=== PATIENT | male | born 1945 | race Caucasian/White ===

== ENCOUNTER 2018-04-01 07:10 | Emergency (ER) | payer MEDICARE, OTHER ==
[~2018-04-01] VITALS: Ht 177.8 cm; Wt 84.0 kg
[~2018-04-01 07:10] MED LIST: ACIPHEX20 M1 PO; ACIPHEX20 MG PO; AZITHROMYCIN500 MG PO; CARDURA2 MG PO; CARDURA4 MG PO; DOXAZOSIN4 M1 PO; ENALAPR/HCTZ1 TA1 PO; FLUARIX QUADRIV1 IN1 IM; GABAPENTIN300 MG PO; LOPRESSOR50 M1 PO; LYRICA75 MG PO; METOPROL TAR50 MG PO; NEXIUM40 M1 PO; NEXIUM40 MG PO; NIZORAL2 % EX; PERCOCET 5/325M1 TAB PO; RESTORIL15 MG PO; VASERETIC1 TAB PO; ZPAK PO
[2018-04-01 08:18] LABS: HEMATOCRIT 36.7 % (39.0-50.0); HEMOGLOBIN 12.8 g/dl (14.0-18.0); IMMATURE GRANULOCYTES 0.3 % (0.0-1.0); MEAN CORPUSCULAR HGB 30.3 pG CALC (26.0-32.0); MEAN CORPUSCULAR HGB CONC 34.9 g/L CALC (32.0-36.0); NEUT# 4.16 thou/uL (1.82-7.42); RED BLOOD COUNT 4.22 mill/uL (4.70-6.10); RED CELL DISTRI WIDTH 12.9 % (11.5-15.5)
[2018-04-01 08:27] LABS: URINE BILIRUBIN - DIPSTICK NEGATIVE (NEGATIVE); URINE BLOOD DIPSTICK NEGATIVE (NEGATIVE); URINE COLOR YELLOW; URINE GLUCOSE - DIPSTICK NEGATIVE (NEGATIVE); URINE KETONE NEGATIVE (NEGATIVE); URINE LEUK ESTERASE NEGATIVE (NEGATIVE); URINE NITRITE - DIPSTICK NEGATIVE (Negative); URINE PH 6.5 (4.5-8.0); URINE PROTEIN - DIPSTICK NEGATIVE (NEG-TRACE); URINE UROBILINOGEN - DIPSTICK 0.2 E.U./dL (0.2)
[2018-04-01 08:28] LABS: ALBUMIN 3.8 g/dL (3.2-5.0); ALKALINE PHOSPHATASE 74 u/l (38-126); ANION GAP 16 (6-22 (CALC)); BILIRUBIN, TOTAL 0.8 mg/dL (0.0-1.4); BUN 23 mg/dL (8-23); BUN/CREATININE RATIO 19 (12-20 (CALC)); CARBON DIOXIDE 28 mmol/l (22-30); CHLORIDE 96 mmol/l (95-108); CREATININE 1.2 mg/dL (0.7-1.3); GFR 60 ML/MIN (>=60 (CALC)); GFR FOR AFR.AMER. > 60 ML/MIN (>=60 (CALC)); LIPASE 107 u/l (23-300); POTASSIUM 3.6 mmol/l (3.5-5.1); SGOT/AST 20 u/l (19-48); SGPT/ALT 42 u/l (11-66); SODIUM 136 mmol/l (137-146)
[2018-04-01 08:30] LABS: URINE CLARITY CLEAR
[2018-04-01 09:41] VITALS: BP 132/66
== END 2018-04-01 09:49 | disposition short-term general hospital (02) ==
LOC: ED 07:10
PROVIDERS: Emergency Medicine
DX: K92.2 Gastrointestinal hemorrhage, unspecified (principal); I10 Essential (primary) hypertension

== ENCOUNTER 2018-04-10 13:09 | Observation (INO) | payer MEDICARE, OTHER ==
[~2018-04-10] VITALS: Ht 177.8 cm; Wt 77.1 kg
--- NOTE | 2018-04-10 13:30 | NUR ---
PT WAS A DIRECT ADMIT. FROM DR. CARNEY'S OFFICE. IV WAS PLACED IN RAC , TOLERATED WELL. CT AND XRAY COMPLETED> LABS COMPLETED:
[2018-04-10 13:45] VITALS: BP 126/65
[2018-04-10 14:08] LABS: URINE BILIRUBIN - DIPSTICK NEGATIVE (NEGATIVE); URINE BLOOD DIPSTICK NEGATIVE (NEGATIVE); URINE CLARITY CLEAR; URINE COLOR YELLOW; URINE GLUCOSE - DIPSTICK NEGATIVE (NEGATIVE); URINE KETONE NEGATIVE (NEGATIVE); URINE LEUK ESTERASE NEGATIVE (NEGATIVE); URINE NITRITE - DIPSTICK NEGATIVE (Negative); URINE PH 7.5 (4.5-8.0); URINE PROTEIN - DIPSTICK NEGATIVE (NEG-TRACE); URINE SPECIFIC GRAVITY 1.015; URINE UROBILINOGEN - DIPSTICK 0.2 E.U./dL (0.2)
[2018-04-10 14:34] LABS: HEMATOCRIT 34.7 % (39.0-50.0); HEMOGLOBIN 11.9 g/dl (14.0-18.0); IMMATURE GRANULOCYTES 0.3 % (0.0-1.0); MEAN CELL VOLUME 87.4 fL CALC (80.0-100.0); MEAN CORPUSCULAR HGB CONC 34.3 g/L CALC (32.0-36.0); NEUT# 4.08 thou/uL (1.82-7.42); RED BLOOD COUNT 3.97 mill/uL (4.70-6.10); RED CELL DISTRI WIDTH 12.7 % (11.5-15.5)
[2018-04-10 14:42] LABS: ANION GAP 16 (6-22 (CALC)); BUN 17 mg/dL (8-23); BUN/CREATININE RATIO 15 (12-20 (CALC)); CARBON DIOXIDE 28 mmol/l (22-30); CHLORIDE 96 mmol/l (95-108); CREATININE 1.1 mg/dL (0.7-1.3); GFR > 60 ML/MIN (>=60 (CALC)); GFR FOR AFR.AMER. > 60 ML/MIN (>=60 (CALC)); SODIUM 135 mmol/l (137-146)
[2018-04-10 14:50] LABS: POTASSIUM 4.7 mmol/l (3.5-5.1)
--- NOTE | 2018-04-10 15:00 | NUR ---
ASSESSMENT IS COMPLETED: ATTEMPTED TO HAVE IV FLUIDS IN RAC BECAME PUFFY WHEN FLUSHED. ATTEMPTED TO TRY X2 TO RESTART UNABLE. BREATH SOUNDS ARE CLEAR, BILATERALLY, NO C/O SOB, HR IS REG,PULSES ARE STRONG X4. ABD IS SOFT WITH ACTIVE BS. FAMILY IN THE ROOM. CONTINUE T OSBERVE AND MONITOR.
[2018-04-10 15:25] VITALS: BP 133/63
--- NOTE | 2018-04-10 17:00 | NUR ---
PT IS RELAXING IN BED WITH NO DISTRESS NOTED. IV RESTARTED IN RAC WITH 22 BY TANNA PREP COOK. PT TOLERATED WELL. FAMILY CAME IN TO VISIT WITH PT. CONTINUE TO OBSERVE AND MONITOR.
[2018-04-10 19:00] VITALS: BP 136/51
--- NOTE | 2018-04-10 19:35 | NUR ---
PT AWAKE RESTING IN BED. RESP EVEN AND UNLABORED. ALERT AND ORIENTED X4. LUNGS CLEAR BILAT. ABD SOFT AND NONDISTENDED WITH BOWEL SOUNDS PRESENT. NO LOWER EXT EDEMA NOTED. PEDAL PULSES PALPATED BILAT. IV SITE PATENT IN RT A.C NO REDNESS OR SWELLING AT SITE. IVF D5 1/2NSS AT 120CC/HR. PT DENIES ANY PAIN OR DISCOMFORT. TELE INTACT READING SR PER E.D. FREQUENT ROUNDS MADE. CALL CROOKS WITHIN REACH.
[2018-04-11 00:18] VITALS: BP 124/65
--- NOTE | 2018-04-11 00:30 | NUR ---
PT RESTING IN BED WITH EYES CLOSED. RESP EVEN AND UNLABORED. NO DISTRESS NOTED. IV SITE PATENT. TELE INTACT. FREQUENT ROUNDS MADE. CALL CROOKS WITHIN REACH.
[2018-04-11 04:25] VITALS: BP 126/65
--- NOTE | 2018-04-11 04:33 | NUR ---
PT RESTING IN BED WITH EYES CLOSED. RESP EVEN AND UNLABORED. NO DISTRESS NOTED. IV SITE PATENT. FREQUENT ROUNDS MADE. CALL CROOKS WITHIN REACH.
[2018-04-11 05:31] LABS: HEMATOCRIT 30.7 % (39.0-50.0); HEMOGLOBIN 10.7 g/dl (14.0-18.0); IMMATURE GRANULOCYTES 0.8 % (0.0-1.0); MEAN CELL VOLUME 86.2 fL CALC (80.0-100.0); MEAN CORPUSCULAR HGB 30.1 pG CALC (26.0-32.0); MEAN CORPUSCULAR HGB CONC 34.9 g/L CALC (32.0-36.0); NEUT# 2.95 thou/uL (1.82-7.42); RED BLOOD COUNT 3.56 mill/uL (4.70-6.10); RED CELL DISTRI WIDTH 12.4 % (11.5-15.5)
[2018-04-11 05:51] LABS: ALBUMIN 3.1 g/dL (3.2-5.0); ALKALINE PHOSPHATASE 54 u/l (38-126); ANION GAP 13 (6-22 (CALC)); BILIRUBIN, TOTAL 0.4 mg/dL (0.0-1.4); BUN 14 mg/dL (8-23); BUN/CREATININE RATIO 14 (12-20 (CALC)); CARBON DIOXIDE 28 mmol/l (22-30); CHLORIDE 96 mmol/l (95-108); GFR > 60 ML/MIN (>=60 (CALC)); GFR FOR AFR.AMER. > 60 ML/MIN (>=60 (CALC)); POTASSIUM 3.8 mmol/l (3.5-5.1); SGOT/AST 16 u/l (19-48); SGPT/ALT 31 u/l (11-66); SODIUM 133 mmol/l (137-146); TOTAL PROTEIN 5.9 g/dL (6.3-8.2)
[2018-04-11 08:40] VITALS: BP 136/73
--- NOTE | 2018-04-11 08:40 | NUR ---
PT IS RELAXING IN BED WITH NO DISTRESS NOTED. IV SITE IS FREE FROM REDNESS OR EDEMA. HR IS REG, PULSES ARE STRONG X4, ABD IS SOFT WITH ACTIVE BS. TELE MONITOR IN PLACE. CONTINUE TO OBSERVE AND MONITOR.
--- NOTE | 2018-04-11 12:30 | NUR ---
PT HAS BEEN RELAXING IN BED WITH NO DISTRESS NOTED. IV SITE IS FREE FROM RDNESS OR EDEMA.
--- NOTE | 2018-04-11 13:00 | NUR ---
DISCHARGE INSTRUCTIONS GIVEN AND VERBALIZED UNDERSTANDING, Discharge instructions given. Patient verbalizes understanding of same. Discharged in stable condition via AMBULATORY to Home with family. All belongings sent with pt.
== END 2018-04-11 13:07 | disposition home or self-care (01) ==
LOC: MS2 13:09
PROVIDERS: ADMIT Internal Medicine Geriatric Medicine; ATTEND Internal Medicine Geriatric Medicine
DX: E86.0 Dehydration (principal); R53.1 Weakness; R11.2 Nausea with vomiting, unspecified; F41.9 Anxiety disorder, unspecified; R10.13 Epigastric pain; R14.0 Abdominal distension (gaseous); K21.9 Gastro-esophageal reflux disease without esophagitis; I10 Essential (primary) hypertension; E78.5 Hyperlipidemia, unspecified; K57.30 Diverticulosis of large intestine without perforation or abscess without bleeding; Z87.11 Personal history of peptic ulcer disease; M19.90 Unspecified osteoarthritis, unspecified site
CPT/HCPCS: S0164

== ENCOUNTER → 2019-01-19 | Outpatient (REF) | payer MEDICARE, OTHER ==
[2019-01-19 08:15] LABS: HEMATOCRIT 38.9 % (39.0-50.0); IMMATURE GRANULOCYTES 0.7 % (0.0-5.0); MEAN CELL VOLUME 87.6 fL CALC (80.0-100.0); MEAN CORPUSCULAR HGB 29.3 pG CALC (26.0-32.0); MEAN CORPUSCULAR HGB CONC 33.4 g/L CALC (32.0-36.0); NEUT# 3.46 thou/uL (1.82-7.42); RED BLOOD COUNT 4.44 mill/uL (4.70-6.10); RED CELL DISTRI WIDTH 12.8 % (11.5-15.5)
[2019-01-19 09:02] LABS: ALBUMIN 3.8 g/dL (3.2-5.0); BILIRUBIN, TOTAL 0.6 mg/dL (0.0-1.4); CREATININE 1.4 mg/dL (0.7-1.3); POTASSIUM 3.9 mmol/l (3.5-5.1); TOTAL PROTEIN 6.8 g/dL (6.3-8.2)
== END | disposition home or self-care (01) ==
LOC: LAB 07:38
PROVIDERS: ATTEND Internal Medicine Geriatric Medicine
DX: I10 Essential (primary) hypertension (principal)

== ENCOUNTER 2021-05-29 23:16 | Observation (INO) | payer MEDICARE, OTHER ==
[~2021-05-29] VITALS: Ht 177.8 cm; Wt 73.0 kg
[~2021-05-29 23:16] MED LIST changes: +OMEPRAZOLE DR40 MG PO; +OSTEO BI-FLEX J1 TAB PA; +PRESERVISION ARED1 PO; +PROTONIX40 M2 PO
--- NOTE | 2021-05-29 23:25 | NUR ---
AMBULATORY TO ROOM. DECLINED W/C. TRIAGED AT BEDSIDE.
[2021-05-29] MEDS ORDERED: TESTOSTERON200 MG/ML IM (23:46)
[2021-05-29] MEDS ORDERED: OMEPRAZOLE10 MG PO (23:48)
--- NOTE | 2021-05-30 00:28 | NUR ---
IV ACCESS OBTAINED EKG COMPLETED AND COVID SWAB OBTAINED PT TOELRATED WELL, CALL CROOKS WITHIN REACH
[2021-05-30 00:32] LABS: HEMATOCRIT 35.3 % (39.0-50.0); HEMOGLOBIN 11.8 g/dl (14.0-18.0); IMMATURE GRANULOCYTES 0.7 % (0.0-5.0); MEAN CORPUSCULAR HGB 29.4 pG CALC (26.0-32.0); MEAN CORPUSCULAR HGB CONC 33.4 g/dL CAL (32.0-36.0); NEUT# 4.65 thou/uL (1.82-7.42); RED BLOOD COUNT 4.01 mill/uL (4.70-6.10); RED CELL DISTRI WIDTH 12.9 % (11.5-15.5)
[2021-05-30 00:45] LABS: ALBUMIN 3.6 g/dL (3.2-5.0); ALKALINE PHOSPHATASE 65 u/l (38-126); ANION GAP 11 (6-22 (CALC)); BUN 29 mg/dL (8-23); BUN/CREATININE RATIO 23 (12-20 (CALC)); CARBON DIOXIDE 27 mmol/l (22-30); CHLORIDE 98 mmol/l (95-108); CREATININE 1.3 mg/dL (0.7-1.3); GFR 54 ML/MIN (>=60 (CALC)); GFR FOR AFR.AMER. > 60 ML/MIN (>=60 (CALC)); POTASSIUM 4.1 mmol/l (3.5-5.1); SGOT/AST 23 u/l (19-48); SODIUM 131 mmol/l (137-146); TOTAL PROTEIN 6.6 g/dL (6.3-8.2)
[2021-05-30 00:48] LABS: BILIRUBIN, TOTAL 0.2 mg/dL (0.0-1.4)
--- NOTE | 2021-05-30 01:25 | NUR ---
PT RESTING AWAER OF AWAITNG LAB RESULTS ETC. NO COMPLAINTS OFFERED.
[2021-05-30 01:30] LABS: URINE BILIRUBIN - DIPSTICK NEGATIVE (NEGATIVE); URINE BLOOD DIPSTICK NEGATIVE (NEGATIVE); URINE COLOR YELLOW; URINE GLUCOSE - DIPSTICK NEGATIVE (NEGATIVE); URINE KETONE NEGATIVE (NEGATIVE); URINE LEUK ESTERASE NEGATIVE (NEGATIVE); URINE PROTEIN - DIPSTICK NEGATIVE (NEG-TRACE); URINE SPECIFIC GRAVITY 1.025; URINE UROBILINOGEN - DIPSTICK 0.2 E.U./dL (0.2)
[2021-05-30 01:31] LABS: URINE NITRITE - DIPSTICK NEGATIVE (Negative)
--- NOTE | 2021-05-30 02:33 | NUR ---
B/P REMAINS ELEVATED MD AWARE AND MEDICATED ORDERED
--- NOTE | 2021-05-30 02:57 | NUR ---
INTO SPEAK WITH PATIENT REGARDING PLAN OF CARE INCLUDING ADMISSION ALL QUESTIONS ANSWERED
--- NOTE | 2021-05-30 03:40 | NUR ---
REPORT CALLED TO SERG SCHMID ON MED SURG, ROOM 262 AND [address]LE [id number] ASSIGNED.
--- NOTE | 2021-05-30 03:45 | NUR ---
PT BELONGING RECORD COMPLETED.
--- NOTE | 2021-05-30 03:46 | NUR ---
B/P IMPROVED SINCE CLONIDINE ADMIN, CURRENTLY 139/66.
--- NOTE | 2021-05-30 04:02 | NUR ---
PT AWARE OF PLANNED ADMISSION, BELONGINGS RECORD COMPLETED, AND PT AMBULATED TO WHEELCHAIR WITH STEADY GAIT, TELEMETRY APPLIED AND IN PLACE, AND AWAITING TRANSPORT TO MED SURG.
--- NOTE | 2021-05-30 04:14 | NUR ---
PT TRASNPORTED TO MED SURG VIA WHEELCHAIR ON TELE FOR ADMISSION.
--- NOTE | 2021-05-30 04:14 | NUR ---
D/C instructions given with verbalization of understanding. Pt. discharged home in stable condition. PT TRANSPORTED TO ROOM VIA WHEELCHAIR.
[2021-05-30 04:18] VITALS: BP 133/62
--- NOTE | 2021-05-30 04:56 | NUR ---
RECEIVED PATIENT TO ROOM 262 VIA WC AND ESCORTED BY BRENNAN SCHMID. PATIENT IS ALERT AND ORIENTED X3. ABLE TO MAKE NEEDS KNOWN. RESPIRATIONS EASY. HEART RATE REGULAR AND SLOW. DENIES PAIN OR DISCOMFORT AT THIS TIME. ORIENTED TO ROOM AND CALL LIGHT SYSTEM. INITIATED FALL PRECAUTIONS. VAD SALINE LOCKED. ADMISSION COMPLETED AND CHARTED. BED IN LOW POSITION. CALL LIGHT WITHIN REACH.
--- NOTE | 2021-05-30 08:00 | NUR ---
PATIENT IS RESTING IN BED IN SEMI-FOWLERS POSITION. ASSESSMENT DONE. TELE IN PLACE. PATIENT DENIES PAIN AT THIS TIME. HE STATED HE FEELS FINE NOW. RESPS EVEN AND UNLABORED. CALL LIGHT IN REACH.
[2021-05-30 08:41] VITALS: BP 123/62
--- NOTE | 2021-05-30 08:45 | NUR ---
call placed to Dm Anderson APRN in regards to st changes; EKG ordered
[2021-05-30 10:40] VITALS: BP 123/56
--- NOTE | 2021-05-30 12:15 | NUR ---
PATIENT IS RESTING IN BED WITH NO DISTRESS NOTED. PATIENT DENIES NEEDS AT THIS TIME. CALL LIGHT IN REACH.
--- NOTE | 2021-05-30 12:54 | NUR ---
Discharge instructions given. Patient verbalizes understanding of same. Discharged in stable condition via Wheelchair to Home with staff. All belongings sent with pt.
== END 2021-05-30 12:54 | disposition home health service (06) ==
LOC: ED 23:16 → ED-I 05-30 02:43 → ED 05-30 02:55 → MS2 05-30 02:56
PROVIDERS: Emergency Medicine; ADMIT Hospitalist; ATTEND Hospitalist
DX: I10 Essential (primary) hypertension (principal); F41.9 Anxiety disorder, unspecified; K21.9 Gastro-esophageal reflux disease without esophagitis; Z86.16 Personal history of COVID-19; Z20.822 Contact with and (suspected) exposure to COVID-19
CPT/HCPCS: G0378; S0164

== ENCOUNTER 2021-06-04 06:12 | Day surgery (SDC) | payer MEDICARE, OTHER ==
[~2021-06-04] VITALS: Ht 177.8 cm; Wt 77.1 kg
[~2021-06-04 06:12] MED LIST changes: +OMEPRAZOLE10 MG PO; +TESTOSTERON200 MG/ML IM
[2021-06-04] MEDS ORDERED: OSTEO BI-FLEX J1 TAB PO (06:29)
[2021-06-04 08:18] VITALS: BP 163/67
--- NOTE | 2021-06-04 14:57 | NUR ---
SPOKE WITH PATIENT STATES DOING WELL FOLLOWING PROCEDURE, AT HOME RESTING, AND VOICING NO CONCERNS AT TIME OF CALL. STATES WILL FOLLOW UP IN OFFICE 06/15/21 AT 1030 TO DISCUSS HERNIA FINDINGS.
== END 2021-06-04 08:40 | disposition home or self-care (01) ==
LOC: ENDO 06:12 → ORM 08:30 → ENDO 08:30
PROVIDERS: ATTEND Surgery
PROC: 0DJ08ZZ Inspection of Upper Intestinal Tract, Via Natural or Artificial Opening Endoscopic (ICD-10-PCS; principal; 2021-06-04)
PROC: 0DJD8ZZ Inspection of Lower Intestinal Tract, Via Natural or Artificial Opening Endoscopic (ICD-10-PCS; 2021-06-04)
DX: K29.60 Other gastritis without bleeding (principal); K44.9 Diaphragmatic hernia without obstruction or gangrene; Z12.11 Encounter for screening for malignant neoplasm of colon; K57.30 Diverticulosis of large intestine without perforation or abscess without bleeding; K64.8 Other hemorrhoids; I10 Essential (primary) hypertension; Z86.16 Personal history of COVID-19; Z86.010 Personal history of colon polyps
CPT/HCPCS: 43235; G0105

== ENCOUNTER 2022-05-05 07:02 | Emergency (ER) | payer MEDICARE, OTHER ==
[~2022-05-05] VITALS: Ht 177.8 cm; Wt 76.6 kg
[~2022-05-05 07:02] MED LIST changes: +OSTEO BI-FLEX J1 TAB PO
[2022-05-05 07:16] VITALS: BP 158/72
[2022-05-05 07:30] VITALS: BP 144/70
[2022-05-05 07:49] LABS: HEMOGLOBIN 13.1 g/dl (14.0-18.0); IMMATURE GRANULOCYTES 0.8 % (0.0-5.0); MEAN CELL VOLUME 89.7 fL CALC (80.0-100.0); MEAN CORPUSCULAR HGB 30.1 pG CALC (26.0-32.0); MEAN CORPUSCULAR HGB CONC 33.6 g/dL CAL (32.0-36.0); NEUT# 4.52 thou/uL (1.82-7.42); RED BLOOD COUNT 4.35 mill/uL (4.70-6.10); RED CELL DISTRI WIDTH 12.4 % (11.5-15.5)
[2022-05-05 08:00] VITALS: BP 144/68
[2022-05-05 08:13] LABS: ALKALINE PHOSPHATASE 77 u/l (38-126); AMYLASE 63 u/l (30-110); ANION GAP 10 (6-22 (CALC)); BILIRUBIN, TOTAL 0.5 mg/dL (0.0-1.4); BUN 25 mg/dL (8-23); BUN/CREATININE RATIO 17 (12-20 (CALC)); CARBON DIOXIDE 28 mmol/l (22-30); CHLORIDE 101 mmol/l (95-108); CREATININE 1.5 mg/dL (0.7-1.3); GFR FOR AFR.AMER. 55 ML/MIN (>=60 (CALC)); GFR OTHER RACES 46 ML/MIN (>=60 (CALC)); LIPASE 139 u/l (23-300); POTASSIUM 3.9 mmol/l (3.5-5.1); SGOT/AST 19 u/l (19-48); SODIUM 135 mmol/l (137-146); TOTAL PROTEIN 7.4 g/dL (6.3-8.2)
[2022-05-05 08:28] LABS: MYOGLOBIN 38 ng/mL (0 - 121)
[2022-05-05 09:01] VITALS: BP 167/73
[2022-05-05] MEDS ORDERED: MIRALAX17 GM PO (09:30)
[2022-05-05 09:31] VITALS: BP 165/71
[2022-05-05 09:49] VITALS: BP 165/71
== END 2022-05-05 10:12 | disposition home or self-care (01) ==
LOC: ED 07:02
PROVIDERS: Emergency Medicine
DX: K59.00 Constipation, unspecified (principal); R10.13 Epigastric pain; R16.0 Hepatomegaly, not elsewhere classified; K76.0 Fatty (change of) liver, not elsewhere classified; N28.1 Cyst of kidney, acquired; R00.1 Bradycardia, unspecified
CPT/HCPCS: Q9967

== ENCOUNTER 2022-12-17 06:34 | Day surgery (SDC) | payer MEDICARE, OTHER ==
[~2022-12-17] VITALS: Ht 172.7 cm; Wt 77.1 kg
[~2022-12-17 06:34] MED LIST changes: +FLONASE SE27.5 MCG/S; +MIRALAX17 GM PO
[2022-12-17 10:27] VITALS: BP 168/79
== END 2022-12-17 11:00 | disposition home or self-care (01) ==
LOC: ORM 06:34
PROVIDERS: ATTEND Urology
PROC: 0VTTXZZ Resection of Prepuce, External Approach (ICD-10-PCS; principal; 2022-12-17)
DX: N47.1 Phimosis (principal); L28.0 Lichen simplex chronicus; N40.1 Benign prostatic hyperplasia with lower urinary tract symptoms; N13.8 Other obstructive and reflux uropathy; I10 Essential (primary) hypertension; I25.10 Atherosclerotic heart disease of native coronary artery without angina pectoris; K21.9 Gastro-esophageal reflux disease without esophagitis; Z87.891 Personal history of nicotine dependence
CPT/HCPCS: J0131

== ENCOUNTER 2023-03-23 06:38 | Day surgery (SDC) | payer MEDICARE, OTHER ==
[~2023-03-23] VITALS: Ht 175.3 cm; Wt 73.5 kg
[2023-03-23] MEDS ORDERED: PERCOCET 5/321 COMBO PO (08:35)
[2023-03-23 09:48] VITALS: BP 170/75
== END 2023-03-23 10:17 | disposition home or self-care (01) ==
LOC: ORM 06:38
PROVIDERS: ATTEND Surgery
PROC: 0YU50JZ Supplement Right Inguinal Region with Synthetic Substitute, Open Approach (ICD-10-PCS; principal; 2023-03-23)
DX: K40.90 Unilateral inguinal hernia, without obstruction or gangrene, not specified as recurrent (principal); D17.6 Benign lipomatous neoplasm of spermatic cord; I10 Essential (primary) hypertension
CPT/HCPCS: C9290; J0131; J0690; J1100

== ENCOUNTER 2024-05-28 08:59 | Emergency (ER) | payer MEDICARE, OTHER ==
[~2024-05-28] VITALS: Ht 175.3 cm; Wt 78.0 kg
[2024-05-28] VITALS (11 sets, daily range): BP systolic 151–170; BP diastolic 62–77
[~2024-05-28 08:59] MED LIST changes: +PERCOCET 5/321 COMBO PO
[2024-05-28 10:41] LABS: BASO% 0.4 % (0-3); EOS% 3.4 % (0-8); HEMATOCRIT 34.4 % (39.0-50.0); HEMOGLOBIN 11.4 g/dl (14.0-18.0); IMMATURE GRANULOCYTES 0.2 % (0.0-5.0); LYMPH% 25.3 % (15-41); MEAN CELL VOLUME 90.5 fL CALC (80.0-100.0); MEAN CORPUSCULAR HGB CONC 33.1 g/dL CAL (32.0-36.0); MONO% 8.5 % (2-13); NEUT# 3.07 thou/uL (1.82-7.42); NEUT% 62.2 % (42-76); RED BLOOD COUNT 3.8 mill/uL (4.70-6.10); RED CELL DISTRI WIDTH 12.9 % (11.5-15.5)
[2024-05-28 10:56] LABS: ALBUMIN 3.8 g/dL (3.2-5.0); ALKALINE PHOSPHATASE 57 u/l (38-126); ANION GAP 7 (6-22 (CALC)); BILIRUBIN, TOTAL 0.5 mg/dL (0.2-1.3); BUN 30 mg/dL (8-23); BUN/CREATININE RATIO 21 (12-20 (CALC)); CARBON DIOXIDE 28 mmol/l (22-30); CHLORIDE 110 mmol/l (95-108); CREATININE 1.5 mg/dL (0.7-1.3); ESTIMATED GFR 47 ML/MIN (>=90 (CALC)); POTASSIUM 4.2 mmol/l (3.5-5.1); SGOT/AST 23 u/l (19-48); SODIUM 140 mmol/l (137-146); TOTAL PROTEIN 6.9 g/dL (6.3-8.2)
== END 2024-05-28 11:39 | disposition home or self-care (01) ==
LOC: ED 08:59
PROVIDERS: Family Medicine
DX: M25.512 Pain in left shoulder (principal); M25.511 Pain in right shoulder; I10 Essential (primary) hypertension